=== PATIENT | female | born 1965 | race Caucasian/White ===

== ENCOUNTER → 2024-02-20 09:06 | Outpatient (REF) | payer BC, SELFPAY ==
[2024-02-20 11:10] LABS: ALT (SGPT) 25 U/L (0-35); AST (SGOT) 33 U/L (14-36); Albumin 4.7 g/dl (3.5-5.0); Alkaline Phosphatase 63 U/L (38-126); Blood Urea Nitrogen 20 mg/dl (7-17); Calcium 9.9 mg/dl (8.4-10.2); Carbon Dioxide 31 mmol/L (22-30); Chloride 98 mmol/L (98-107); Glucose 93 mg/dl (70-99); HDL Cholesterol 62 mg/dl; LDL Cholesterol, Calculated 137 mg/dl; Potassium 4.4 mmol/L (3.5-5.1); Sodium 138 mmol/L (135-145); Total Bilirubin 0.5 mg/dl (0.2-1.3); Total Cholesterol 225 mg/dl (50-199); Total Protein 7.5 g/dl (6.3-8.2); Triglyceride 132 mg/dl (10-149); Very Low Density Lipoprotein 26 mg/dl (0-30); eGFR > 60.00
[2024-02-20 12:37] LABS: Glycohemoglobin (HgbA1c) 5.9 % (4.0-5.6)
[2024-02-20 15:17] LABS: tTG IgA Antibody 7.2 EU/ml (0-19); tTG IgG Antibody 9.3 EU/ml (0-19)
[2024-02-20 23:48] LABS: IgA 493 mg/dl (70-400)
[2024-02-23 01:29] LABS: Endomysial IgA Antibody Titer <1:10 (<1:10)
== END ==
LOC: REG 09:06
PROVIDERS: ATTENDING PHYSICIAN Emergency Medicine; FAMILY PHYSICIAN Internal Medicine Hematology & Oncology
DX: R73.03 Prediabetes (principal); E78.2 Mixed hyperlipidemia; Z83.79 Family history of other diseases of the digestive system
CPT/HCPCS: 36415; 80053; 80061; 82784; 83036; 83516; 86231

== ENCOUNTER → 2024-03-04 07:26 | Outpatient (REF) | payer BC, SELFPAY | LOC: RAD 07:26 | PROVIDERS: ATTENDING PHYSICIAN Emergency Medicine | DX: R10.30 Lower abdominal pain, unspecified (principal) | CPT/HCPCS: 74177; Q9967 ==